=== PATIENT | male | born 1950 | race Caucasian/White ===

== ENCOUNTER → 2016-11-28 | Day surgery (SDC) | payer OTHER ==
[~2016-11-28] VITALS: Ht 182.9 cm; Wt 85.3 kg
--- NOTE | 2016-11-28 14:39 | Operative Report ---
Operative/Inv Procedure Report Surgery Date: 11/28/16 Name of Procedure: Wide local excision of 4 separate squamous cell skin cancers, 2 on the face and 2 on the scalp, with intermediate complexity layered closure of each: Left lateral forehead lesion diameter 1.2 cm closure length 2.3 cm, left postauricular scalp lesion diameter 2.6 cm closure 4 cm, postauricular scalp on the right, lesion diameter 2.1 cm closure 3.1 cm, and right cheek lesion diameter 3.5 cm closure length 4.2 cm. Pre-Operative Diagnosis: Squamous cell skin cancers on face and scalp Post-Operative Diagnosis: Same Estimated Blood Loss: scant Surgeon/Teletype Adjuster: NURYS MCQUEEN,KAREEM Cortez Anesthesia: local monitored anesthesi Operative/Procedure Note Note: Patient placed on the OR table supine after successful induction of MAC sedation his face neck and postauricular scalp bilaterally, was clipped prepped and draped in usual sterile fashion we used the sticky drapes and Tegaderms to help keep the hair away. We first approached the lesion on the left side of his face we rimma a line around it oriented along the skin lines injected local anesthetic made the elliptical incision with a 15 blade used cautery for hemostasis placed orienting sutures on it which we did on all 4 lesions using short superior and long lateral as the designations. The area was checked for hemostasis and then reapproximated in layers using interrupted 3 and 4-0 Vicryl subdermally and a running 5-0 nylon for the skin followed by bacitracin Telfa and Tegaderm. Next on that side the largest lesion postauricular it was protruding out of the skin with a central crater this was marked and excised in similar fashion as the first lesion, but the closure was different and this was a very tight spot we had taken the excision down to the muscle layer and undermined to develop the central aspect of the incision subcutaneous flaps. First by putting in without tying, four interrupted 3-0 Vicryl sutures, held the ends on snaps and then started closing the skin with 4-0 nylon to help take the tension off and when that suture line came over the Vicryl, I would tie the Vicryl and keep going and eventually you could get the skin edges together. This was dressed in similar fashion the inferior side of the table and excised the right sided posterior auricular scalp that one was not as tight and then finally we excised the right cheek lesion which was an irregularly edged spot like a rash so the area of excision was actually the largest of the four. All 4 sites were dressed in similar fashion bacitracin Telfa and Tegaderm. EBL minimal lap and sponge counts correct wound expectancies are clean IV fluids crystalloid complications none patient had a procedure well was awakened and returned to recovery in satisfactory condition.
== END ==
LOC: STS 01:04
DX: C44.329 Squamous cell carcinoma of skin of other parts of face (principal); C44.42 Squamous cell carcinoma of skin of scalp and neck; J44.9 Chronic obstructive pulmonary disease, unspecified; J45.909 Unspecified asthma, uncomplicated; Z87.891 Personal history of nicotine dependence
CPT/HCPCS: 88305; J0690; J1100; J2250; J2405